=== PATIENT | female | born 1950 | race Caucasian/White ===

== ENCOUNTER 2018-02-26 07:29 | Day surgery (SDC) | payer OTHER ==
[~2018-02-26] VITALS: Ht 162.6 cm; Wt 96.7 kg
[~2018-02-26 07:29] MED LIST: ALBU90OI INH; ALBU90OI6 INH; BACL10 PO; BUDE6HFA PO; CYAN1000 PO; FLUSAL1005 IH; FURO40 PO; GABA100 PO; GABA300 PO; LANS15EC PO; LANS30EC PO; LEVFLO500 PO; LOSA25 PO; MAGCHL64ER PO; METF500 PO; METF500C PO; MONT10T PO; NIAC500 PO; PROBIOTIC1 EAC1 PO; Pulmicort Fle180 MCG INH; SIMV5 PO; TYLENOL PM PO; VENL150ER PO; VENL25 PO; VITAMIN D32000 UNIT PO; VITB100 PO
== END 2018-02-26 09:19 | disposition home or self-care (01) ==
LOC: ORSCSDS 07:29
PROVIDERS: Surgery
PROC: 0DJD8ZZ Inspection of Lower Intestinal Tract, Via Natural or Artificial Opening Endoscopic (ICD-10-PCS; principal; 2018-02-26 08:30)
DX: Z12.11 Encounter for screening for malignant neoplasm of colon (principal); I10 Essential (primary) hypertension; J45.909 Unspecified asthma, uncomplicated; G47.33 Obstructive sleep apnea (adult) (pediatric); K21.9 Gastro-esophageal reflux disease without esophagitis; E66.01 Morbid (severe) obesity due to excess calories; Z68.36 Body mass index [BMI] 36.0-36.9, adult; E11.9 Type 2 diabetes mellitus without complications; Z87.891 Personal history of nicotine dependence; Z79.899 Other long term (current) drug therapy
CPT/HCPCS: 82947

== ENCOUNTER → 2020-07-05 | Outpatient (CLI) | payer MEDICARE, OTHER | LOC: LAB SHORT 10:38 → LAB EV 10:38 | DX: R07.9 Chest pain, unspecified (principal); Z20.828 Contact with and (suspected) exposure to other viral communicable diseases | CPT/HCPCS: 84484; 85379; U0003 ==

== ENCOUNTER → 2022-06-21 | Outpatient (CLI) | payer MEDICARE, OTHER | END | disposition home or self-care (01) | LOC: LAB 10:14 → LAB SHORT 10:14 | DX: D22.5 Melanocytic nevi of trunk (principal); L30.9 Dermatitis, unspecified; L81.8 Other specified disorders of pigmentation; L81.4 Other melanin hyperpigmentation; L57.8 Other skin changes due to chronic exposure to nonionizing radiation; Z71.89 Other specified counseling | CPT/HCPCS: 87798 ==

== ENCOUNTER 2022-10-02 23:20 | Emergency (ER) | payer MEDICARE, OTHER ==
[~2022-10-02] VITALS: Ht 162.6 cm; Wt 85.3 kg
[2022-10-03] MEDS ORDERED: CEPH500 PO (00:29)
== END 2022-10-03 00:38 | disposition home or self-care (01) ==
LOC: ER 23:20
DX: S91.341A Puncture wound with foreign body, right foot, initial encounter (principal); W45.8XXA Other foreign body or object entering through skin, initial encounter; E11.9 Type 2 diabetes mellitus without complications; J45.909 Unspecified asthma, uncomplicated; I10 Essential (primary) hypertension
CPT/HCPCS: A9270

== ENCOUNTER → 2022-11-29 | Outpatient (CLI) | payer MEDICARE, OTHER ==
[~2022-11-29] MED LIST changes: +CEPH500 PO
[2022-12-04 11:08] LABS: HPV 16 Negative (Negative); HPV 18 Negative (Negative); HPV OTHER HR TYPES Negative (Negative)
== END | disposition home or self-care (01) ==
LOC: LAB SHORT 11:00 → LAB 11:00
PROVIDERS: Physician Assistant
DX: Z01.419 Encounter for gynecological examination (general) (routine) without abnormal findings (principal)
CPT/HCPCS: 87624; G0145

== ENCOUNTER → 2023-03-22 | Outpatient (CLI) | payer MEDICARE, OTHER ==
[~2023-03-22] MED LIST changes: +ABILIFY MYCITE2 MG PO; +ASPI81CH PO; +FERSU300 PO; +LAMO100 PO; +QVAR REDIHALE10.6 G3 INH; -SIMV5 PO; +TRULICITY0.75 MG/01 SC; +VALS80; +VICTOZA 2-0.6 MG/0.1 SC; +ZOCOR20 MG PO
[2023-03-22 11:10] LABS: BASOPHILS ABSOLUTE AUTO 0.06 K/mm3 (0.00-0.23); BASOPHILS PERCENT AUTO 1 % (0-2); EOSINOPHILS ABSOLUTE AUTO 0.34 K/mm3 (0.00-0.68); EOSINOPHILS PERCENT AUTO 3 % (0-6); Hematocrit 35.8 % (33.0-51.0); Hemoglobin 11.9 g/dL (11.5-16.0); IMMATURE GRAN ABSOLUTE AUTO 0.04 K/mm3 (0.00-0.10); IMMATURE GRAN PERCENT AUTO 0 % (0-1); LYMPHOCYTES ABSOLUTE AUTO 1.62 K/mm3 (0.84-5.20); LYMPHOCYTES PERCENT AUTO 16 % (21-46); MONOCYTES ABSOLUTE AUTO 0.62 K/mm3 (0.16-1.47); MONOCYTES PERCENT AUTO 6 % (4-13); Mean Corpuscular HGB 28.5 pg (26.0-34.0); Mean Corpuscular HGB Conc 33.2 g/dL (31.5-36.5); Mean Corpuscular Volume 86 fL (80-100); Mean Platelet Volume 8.9 fL (9.1-12.4); NEUTROPHILS ABSOLUTE AUTO 7.32 K/mm3 (1.96-9.15); NEUTROPHILS PERCENT AUTO 73 % (41-73); Platelet Count 404 K/mm3 (150-400); RDW Coefficient Variation 14.3 % (11.7-14.2); RDW Standard Deviation 44.3 fL (35.1-46.3); Red Blood Cell Count 4.17 M/mm3 (3.80-5.20)
[2023-03-22 11:39] LABS: Albumin, Blood 3.5 g/dL (3.4-5.0); Albumin/Globulin Ratio 0.9 (0.8-1.8); Bilirubin, Total 0.4 mg/dL (0.1-1.0); Bun/Creatinine Ratio 23.1 (12.0-20.0); Calcium, Blood 9.1 mg/dL (8.5-10.1); Creatinine, Blood 0.78 mg/dL (0.40-1.00); Globulin, Blood 3.9 g/dL (2.2-4.0); Potassium, Blood 4.4 mmol/L (3.5-5.5); Total Protein, Blood 7.4 g/dL (6.4-8.2)
== END | disposition home or self-care (01) ==
LOC: LAB SHORT 11:02 → LAB 11:02
PROVIDERS: Emergency Medicine
DX: R07.9 Chest pain, unspecified (principal)
CPT/HCPCS: 80053; 83690; 84484; 85025; 85379

== ENCOUNTER 2023-10-05 07:13 | Day surgery (SDC) | payer MEDICARE, OTHER ==
[~2023-10-05] VITALS: Ht 160 cm; Wt 79.6 kg
[~2023-10-05 07:13] MED LIST changes: +CALCIUM CIT 311 EAC7 PO
[2023-10-05 07:34] VITALS: BP 142/94
--- NOTE | 2023-10-05 07:59 | NUR ---
Ambulatory in Day Surgery Patient confirms NPO status and agrees with scheduled surgery. Pre-Op teaching done. Pt verbalizes understanding. History, Chart, Medications and Allergies reviewed before start of procedure.Patient States Post-Procedure ride home has been arranged.
--- NOTE | 2023-10-05 08:14 | NUR ---
10/05/23 0814 Brissa Navas MONITOR INTACT WITH CONTINUOUS PULSE OXIMETRY, CONTINUOUS END TITAL CO2, AND INTERMITTENT BLOOD PRESSURE.3-LEAD EKG REVIEWED WITH PHYSICIAN PRIOR TO START OF PROCEDURE.ANESTHESIA PER .
[2023-10-05 08:55] VITALS: BP 126/74
[2023-10-05 09:10] VITALS: BP 146/79
--- NOTE | 2023-10-05 09:24 | NUR ---
DISCHARGE NOTE PT A&OX4, BREATHING RA, CALM, NO COMPLAINTS. ABDOMEN SOFT AND NON-TENDER. SISTER AT BEDSIDE. PT TOLERATING PO FLUIDS. ABLE TO DRESS INDEPENDENTLY. Patient up to Ambulate independently. Gait steady. Discharge instructions reviewed with patient. Patient verbalizes understanding. Copy given to patient to take home. Discharged via wheelchair to private car for ride home.
== END 2023-10-05 09:28 | disposition home or self-care (01) ==
LOC: ORSCMMR 07:13 → ORD 07:30 → ORSCMMR 07:30
PROVIDERS: Surgery
PROC: 0DBP8ZX Excision of Rectum, Via Natural or Artificial Opening Endoscopic, Diagnostic (ICD-10-PCS; principal; 2023-10-05 08:15)
DX: Z12.11 Encounter for screening for malignant neoplasm of colon (principal); R19.5 Other fecal abnormalities; K62.1 Rectal polyp; K57.30 Diverticulosis of large intestine without perforation or abscess without bleeding; J45.909 Unspecified asthma, uncomplicated; F32.A Depression, unspecified; I10 Essential (primary) hypertension; F43.10 Post-traumatic stress disorder, unspecified; K21.9 Gastro-esophageal reflux disease without esophagitis; E11.9 Type 2 diabetes mellitus without complications; Z79.899 Other long term (current) drug therapy; Z79.82 Long term (current) use of aspirin; Z79.84 Long term (current) use of oral hypoglycemic drugs
CPT/HCPCS: 82947; 88305; J2704; J7120

== ENCOUNTER 2024-12-11 10:34 | Day surgery (SDC) | payer OTHER ==
[~2024-12-11] VITALS: Ht 162.6 cm; Wt 77.5 kg
[~2024-12-11 10:34] MED LIST changes: +Lactated Ringer's 1,000 ML IV ONE; +propofoL 50 ML IV ONE
[2024-12-11] MEDS ORDERED: Lactated Ringer's 1,000 ML IV ONE (11:50)
[2024-12-11 13:02] VITALS: BP 122/78
== END 2024-12-11 12:55 | disposition home or self-care (01) ==
LOC: ORSCSDS 10:34
DX: R13.10 Dysphagia, unspecified (principal); R11.2 Nausea with vomiting, unspecified; K21.9 Gastro-esophageal reflux disease without esophagitis; K31.7 Polyp of stomach and duodenum; K44.9 Diaphragmatic hernia without obstruction or gangrene; I25.10 Atherosclerotic heart disease of native coronary artery without angina pectoris; I10 Essential (primary) hypertension; E11.9 Type 2 diabetes mellitus without complications; G47.30 Sleep apnea, unspecified; Z79.899 Other long term (current) drug therapy
CPT/HCPCS: 82947; 88305; 88312; 88342; C1769; J2704; J7120

== ENCOUNTER → 2025-10-21 | Outpatient (CLI) | payer OTHER ==
[~2025-10-21] MED LIST changes: -Lactated Ringer's 1,000 ML IV ONE; -propofoL 50 ML IV ONE
== END ==
LOC: LAB SHORT 09:00 → LAB 09:00
DX: L03.012 Cellulitis of left finger (principal)
CPT/HCPCS: 87070; 87075; 87205